=== PATIENT | male | born 1980 | race Caucasian/White ===

== ENCOUNTER 2018-03-25 11:19 | Emergency (ER) | payer BC ==
[2018-03-25 11:36] VITALS: BP 150/82
--- NOTE | 2018-03-25 12:28 | UC ---
Cardiac HPI - HPI Summary HPI Summary: intermittent mid chest pain x 2 weeks no radiation of the pain , pain is no during exertion , no diaphoresis , no sob , + cough no fever, no chills , - History of Current Complaint Chief Complaint: UCRespiratory Stated Complaint: COUGH,PAIN IN CHEST Time Seen by Provider: 03/25/18 11:27 Hx Obtained From: Patient Onset/Duration: Gradual Onset, Lasting Weeks - 2, Still Present Timing: Intermittent Episodes Lasting: - few min Initial Severity: Mild Current Severity: Mild Pain Intensity: 3 Chest Pain Location: Left Lateral Character: Dull/Aching Aggravating Factor(s): Nothing Alleviating Factor(s): Spontaneous Resolution Associated Signs & Symptoms: Positive: Chest Pain, Cough. Negative: Vision Changes, Anxiety, Recent Stress, Headaches, Numbness, Tingling, Weakness, Dizziness, SOB, Swelling, Syncope, Fever, Diaphoresis, Nausea/Vomiting, Back Pain - Allergy/Home Medications Allergies/Adverse Reactions: Allergies Allergy/AdvReac Type Severity Reaction Status Date / Time No Known Allergies Allergy Verified 03/25/18 11:35 Home Medications: Home Medications NK [No Home Medications Reported] 03/25/18 [History Confirmed 03/25/18] PMH/Surg Hx/FS Hx/Imm Hx Previously Healthy: Yes - Surgical History Surgical History: None - Family History Known Family History: Negative: Diabetes - Social History Alcohol Use: Weekly Alcohol Amount: every other day Substance Use Type: Marijuana Substance Use Comment - Amount & Last Used: 4 weeks ago Smoking Status (MU): Never Smoked Tobacco Review of Systems All Other Systems Reviewed And Are Negative: Yes Constitutional: Positive: Negative Skin: Positive: Negative Eyes: Positive: Negative ENT: Positive: Negative Respiratory: Positive: Negative Cardiovascular: Positive: Chest Pain Is Patient Immunocompromised?: No Physical Exam Triage Information Reviewed: Yes Appearance: Well-Appearing, No Pain Distress, Well-Nourished Vital Signs: Initial Vital Signs Temp 98.5 F 03/25/18 11:28 Pulse 62 03/25/18 11:28 Resp 16 03/25/18 11:28 BP 150/82 03/25/18 11:28 Pulse Ox 100 03/25/18 11:28 Vital Signs Reviewed: Yes Eye Exam: Normal Eyes: Positive: Conjunctiva Clear ENT Exam: Normal ENT: Positive: Normal ENT inspection, Hearing grossly normal, Pharynx normal Neck exam: Normal Neck: Positive: Supple, Nontender Respiratory: Positive: Chest non-tender, Lungs clear, Normal breath sounds Cardiovascular: Positive: RRR, No Murmur, Pulses Normal. Negative: Tachycardia , Bradycardia, Murmur:Sys:Grade _?_/, Murmur:Dys:Grade _?_/ Abdominal Exam: Normal Abdomen Description: Positive: Nontender, Soft. Negative: CVA Tenderness (R), CVA Tenderness (L) Bowel Sounds: Positive: Present Musculoskeletal Exam: Normal Neurological Exam: Normal Neurological: Positive: Alert, Muscle Tone Normal Diagnostics - Laboratory Diagnostic Studies Completed/Ordered: chest xray : normal cxr - EKG Cardiac Rate: NL Cardiac Rhythm: Sinus: Normal Ectopy: PVCs ST Segment: Normal EKG Comparison: Other - t inversion 2/3/avf - Assessment/Plan Course Of Treatment: atypical chest pain. t inversion 2/3/avf. referral to cardiology for evaluation and tx - Clinical Impression Provider Diagnosis: Chest pain Discharge - Sign-Out/Discharge Documenting (check all that apply): Patient Departure All imaging exams completed and their final reports reviewed: Yes - Discharge Plan Condition: Stable Disposition: HOME Patient Education Materials: Chest Pain (ED), Viral Syndrome (ED) Referrals: Elier MAN,Kam Zaldivar [Primary Care Provider] - Lawrence Guaman MD [Medical Doctor] - As Soon As Possible Additional Instructions: atypical chest pain EKG Borderline T Abnormalities leads 2,3,avf will make a referral to cardiology for eval and tx please go to ED if symptoms are getting worse - Billing Disposition and Condition Condition: STABLE Disposition: Home
== END 2018-03-25 12:39 | disposition home or self-care (01) ==
LOC: UCCORT 11:19
DX: R07.9 Chest pain, unspecified (principal)
CPT/HCPCS: 71046; 93005; 99201; G0463